=== PATIENT | female | born 1965 | race Caucasian/White ===

== ENCOUNTER → 2016-06-29 | Outpatient (CLI) | payer BC, OTHER ==
[~2016-06-29] MED LIST: ASPI81TA83; GLUC1000; HCTZ; LASI80TA; LISI20TA5; NORV5TAB; PRIN10TA; XANA0.25; ZOCO40TA
== END ==
LOC: M WUC 12:57
PROVIDERS: ATTEND Physician Assistant
DX: Z02.1 Encounter for pre-employment examination (principal)

== ENCOUNTER → 2017-05-28 | Outpatient (CLI) | payer BC, OTHER ==
[2017-05-28 12:44] LABS: BASO % 0.4 % (0.0-1.0); EOS % 0.8 % (0.0-3.0); HEMOGLOBIN 15.1 g/dl (12.0-16.0); IMMATURE GRANULOCYTE % 0.2 % (0-3.0); LYMPH # 1.4 10^3/uL (1.5-4.5); LYMPH % 26.8 % (24.0-44.0); MEAN CORPUSCULAR HEMOGLOBIN 32.4 pg (27.0-33.0); MEAN CORPUSCULAR HGB CONC 33.6 g/dl (32.0-36.5); MEAN CORPUSCULAR VOLUME 96.6 fl (80.0-96.0); MONO # 0.3 10^3/uL (0.0-0.8); NEUTROPHILS # 3.5 10^3/uL (1.8-7.7); NEUTROPHILS % 65.8 % (36.0-66.0); PLATELET COUNT, AUTOMATED 322 10^3/uL (150-450); RED BLOOD COUNT 4.66 10^6/uL (4.00-5.40); RED CELL DISTRIBUTION WIDTH 12.7 % (11.5-14.5); WHITE BLOOD COUNT 5.3 10^3/uL (4.0-10.0)
[2017-05-28 13:28] LABS: TOTAL 25(OH) VITAMIN D 18.3 NG/ML (30.0-100.0)
[2017-05-28 13:48] LABS: ALBUMIN 5.1 GM/DL (3.2-5.2); ALBUMIN/GLOBULIN RATIO 1.82 (1.00-1.93); ALKALINE PHOSPHATASE 50 U/L (45-117); ALT/SGPT 19 U/L (12-78); ANION GAP 9 MEQ/L (8-16); AST/SGOT 13 U/L (7-37); BILIRUBIN,TOTAL 0.4 MG/DL (0.2-1.0); BLOOD UREA NITROGEN 10 MG/DL (7-18); CALCIUM LEVEL 9.3 MG/DL (8.5-10.1); CARBON DIOXIDE LEVEL 26 MEQ/L (21-32); CHLORIDE LEVEL 105 MEQ/L (98-107); CHOLESTEROL LEVEL 254 MG/DL (<200); CHOLESTEROL RISK RATIO 4.792 (<5); CREATININE FOR GFR 0.72 MG/DL (0.55-1.30); FREE T4 1.09 NG/DL (0.76-1.46); GLOMERULAR FILTRATION RATE > 60.0 (>51); GLUCOSE, FASTING 87 MG/DL (70-100); HDL CHOLESTEROL 53 MG/DL (>40); LDL CHOLESTEROL 179.2 MG/DL (<100); NON-HDL-C 201 MG/DL; POTASSIUM SERUM 4.7 MEQ/L (3.5-5.1); SODIUM LEVEL 140 MEQ/L (136-145); TOTAL PROTEIN 7.9 GM/DL (6.4-8.2); TRIGLYCERIDES LEVEL 109 MG/DL (<150)
== END ==
LOC: M WUC 10:29
DX: Z13.220 Encounter for screening for lipoid disorders (principal); Z13.0 Encounter for screening for diseases of the blood and blood-forming organs and certain disorders involving the immune mechanism; Z13.29 Encounter for screening for other suspected endocrine disorder; E55.9 Vitamin D deficiency, unspecified
CPT/HCPCS: 84443

== ENCOUNTER → 2018-08-14 | Outpatient (CLI) | payer OTHER ==
[2018-08-14 13:05] LABS: BASO % 0.4 % (0.0-1.0); EOS # 0.1 10^3/uL (0.0-0.50); EOS % 2.1 % (0.0-3.0); HEMATOCRIT 44.9 % (36.0-47.0); HEMOGLOBIN 14.5 g/dl (12.0-15.5); LYMPH # 1.8 10^3/uL (1.5-4.5); LYMPH % 37.3 % (24.0-44.0); MEAN CORPUSCULAR HEMOGLOBIN 32.1 pg (27.0-33.0); MEAN CORPUSCULAR HGB CONC 32.3 g/dl (32.0-36.5); MEAN CORPUSCULAR VOLUME 99.3 fl (80.0-96.0); MONO # 0.3 10^3/uL (0.0-0.8); MONO % 6.8 % (0.0-5.0); NEUTROPHILS # 2.5 10^3/uL (1.8-7.7); NEUTROPHILS % 53.2 % (36.0-66.0); PLATELET COUNT, AUTOMATED 290 10^3/uL (150-450); RED BLOOD COUNT 4.52 10^6/uL (4.00-5.40); WHITE BLOOD COUNT 4.7 10^3/uL (4.0-10.0)
[2018-08-14 13:20] LABS: ALBUMIN 4.2 GM/DL (3.2-5.2); ALT/SGPT 15 U/L (12-78); BILIRUBIN,TOTAL 0.5 MG/DL (0.2-1.0); BLOOD UREA NITROGEN 10 MG/DL (7-18); CARBON DIOXIDE LEVEL 27 MEQ/L (21-32); CHLORIDE LEVEL 104 MEQ/L (98-107); CHOLESTEROL LEVEL 216 MG/DL (<200); CREATININE FOR GFR 0.64 MG/DL (0.55-1.30); FREE T4 1.01 NG/DL (0.76-1.46); GLOMERULAR FILTRATION RATE > 60.0 (>51); GLUCOSE, FASTING 82 MG/DL (70-100); HDL CHOLESTEROL 54 MG/DL (>40); LDL CHOLESTEROL 139 MG/DL (<100); NON-HDL-C 162 MG/DL; POTASSIUM SERUM 4.8 MEQ/L (3.5-5.1); SODIUM LEVEL 141 MEQ/L (136-145); TOTAL PROTEIN 7.5 GM/DL (6.4-8.2); TRIGLYCERIDES LEVEL 114 MG/DL (<150)
== END ==
LOC: M WUC 08:41
PROVIDERS: ATTEND Family Medicine
DX: E55.9 Vitamin D deficiency, unspecified (principal); E78.00 Pure hypercholesterolemia, unspecified

== ENCOUNTER → 2020-08-18 | Outpatient (CLI) | payer OTHER ==
[2020-08-18 11:09] LABS: BASO % 0.5 % (0.0-1.0); EOS % 0.9 % (0.0-3.0); HEMATOCRIT 46.3 % (36.0-47.0); HEMOGLOBIN 14.9 g/dl (12.0-15.5); LYMPH # 1.8 10^3/uL (1.5-5.0); LYMPH % 41.3 % (24.0-44.0); MEAN CORPUSCULAR HGB CONC 32.2 g/dl (32.0-36.5); MEAN CORPUSCULAR VOLUME 99.6 fl (80.0-96.0); MONO # 0.3 10^3/uL (0.0-0.8); NEUTROPHILS # 2.1 10^3/uL (1.5-8.5); NEUTROPHILS % 49.1 % (36.0-66.0); PLATELET COUNT, AUTOMATED 262 10^3/uL (150-450); RED BLOOD COUNT 4.65 10^6/uL (4.00-5.40); WHITE BLOOD COUNT 4.2 10^3/uL (4.0-10.0)
[2020-08-18 11:45] LABS: ALBUMIN 4.4 GM/DL (3.2-5.2); ALT/SGPT 14 U/L (12-78); BILIRUBIN,TOTAL 0.5 MG/DL (0.2-1.0); BLOOD UREA NITROGEN 9 MG/DL (7-18); CALCIUM LEVEL 9.6 MG/DL (8.5-10.1); CARBON DIOXIDE LEVEL 26 MEQ/L (21-32); CHLORIDE LEVEL 108 MEQ/L (98-107); CHOLESTEROL LEVEL 217 MG/DL (<200); CHOLESTEROL RISK RATIO 3.677 (<5); CREATININE FOR GFR 0.65 MG/DL (0.55-1.30); FREE T4 1.02 NG/DL (0.76-1.46); GLOMERULAR FILTRATION RATE > 60.0 (>51); GLUCOSE, FASTING 93 MG/DL (70-100); HDL CHOLESTEROL 59 MG/DL (>40); LDL CHOLESTEROL 137 MG/DL (<100); NON-HDL-C 158 MG/DL; POTASSIUM SERUM 4.5 MEQ/L (3.5-5.1); SODIUM LEVEL 141 MEQ/L (136-145); TOTAL PROTEIN 7.1 GM/DL (6.4-8.2); TRIGLYCERIDES LEVEL 104 MG/DL (<150)
[2020-08-18 13:11] LABS: TOTAL 25(OH) VITAMIN D 26.6 NG/ML (30.0-100.0)
== END ==
LOC: M WUC 08:10
PROVIDERS: ATTEND Family Medicine
DX: Z13.0 Encounter for screening for diseases of the blood and blood-forming organs and certain disorders involving the immune mechanism (principal); Z13.29 Encounter for screening for other suspected endocrine disorder; E78.00 Pure hypercholesterolemia, unspecified; E55.9 Vitamin D deficiency, unspecified

== ENCOUNTER → 2020-12-22 | Outpatient (CLI) | payer OTHER ==
[~2020-12-22] MED LIST changes: +D31000TA2 PO
== END ==
LOC: M LABSMTC 10:42
PROVIDERS: ATTEND Anesthesiology
DX: Z01.812 Encounter for preprocedural laboratory examination (principal); Z20.822 Contact with and (suspected) exposure to COVID-19

== ENCOUNTER → 2021-01-08 | Outpatient (CLI) | payer OTHER | LOC: M LABSMTC 09:29 | PROVIDERS: ATTEND Anesthesiology | DX: Z01.812 Encounter for preprocedural laboratory examination (principal); Z20.822 Contact with and (suspected) exposure to COVID-19 ==

== ENCOUNTER 2021-01-13 10:55 | Day surgery (SDC) | payer BC, OTHER ==
[~2021-01-13] VITALS: Ht 157.5 cm; Wt 44.5 kg
[~2021-01-13 10:55] MED LIST changes: +LIDOCAINE 2% 100MG/5ML SDV (FOR ANES.) As Ordered ONE; +NS 1,000 ML IV ONE; +propofoL 200 MG/20 ML VIAL As Ordered ONE
--- OUTSIDE RECORDS SUMMARY | 2021-01-13 11:00 | CCD | Continuity of Care Document ---
Author Author Gissell ROE M.D. Organization Unknown Address [address] [facility], [address] [place] [address] Phone [phone] Care Team Providers Care [employer] Name Role Phone Yelitza Kruse D.O.M Problems Description No Information Available Social History Type Date Description Comments Sex Unknown ETOH Use Denies alcohol use Tobacco Use Start: Unknown Patient is a current smoker, smo kes every day 1/2ppd Allergies, Adverse Reactions, Alerts Description No Known Drug Allergies Medications Active Medications SIG Qnty Indications Ordering Provide r Date Miralax 17GM/Scoop Powder 17 gram per dose, mixed with 8 oz water/fluid and to be taken 1 -2 times a day. ( hold or decrease dose if having diarrhea) 238gm K59.00 Chucky chand M.D. 11/11/2020 Vitamin D 1000Unit Tablets 1t ab qd Unknown Buspirone HCL 10mg Tablets 1t ab prn Unknown Immunizations Description No Information Available Vital Signs Date Vital Result Comment 11/11/2020 9:59am BP Systolic 118 mmHg BP Diastolic 62 mmHg Height 62 inches 5'2" Weight 100.00 lb BMI (Body Mass Index) 18.3 kg/m2 [place] Body Weight 110 lb Weight 45.360 kg BSA (Body Surface Area) 1.42 m2 Results Description No Information Available Procedures Description No Information Available Medical Devices Description No Information Available Encounters Description No Information Available Assessments Date Code Description Provider 11/11/2020 K59.00 Constipation, unspecified Keyonna Roe M.D. 11/11/2020 Z12.11 Encounter for screening for issac gnant neoplasm of colon Chucky Roe M.D. Plan of Treatment 11/11/2020 - Chucky Roe M.D.* K59.00 Constipation, unspecified * Z12.11 Encounter for screening for malignant neoplasm of colon* New Medication:* Miralax 17 GM/Scoop * * New Orders:* Colonoscopy, Ordered: 11/11/20 Functional Status Description No Information Available Mental Status Description No Information Available Referrals Refer to Dr Reason for Referral Status Appt Date Chucky Roe M.D. CHRONIC CONSTIPATION/COLO SCREEN Agapito eduled 11/11/2020 [facility] [address] [facility], [address] [place] [address] [phone]
--- OUTSIDE RECORDS SUMMARY | 2021-01-13 11:00 | CCD ---
Author Author [facility] Organization [facility] Address Unknown Phone Unavailable Care Team Providers Care Hot Stick Man Name Role Phone [facility]_806, NA Unavailable Unavailable JamesSofia bridges PA Unavailable Unavailable JamesSofia PA Unavailable Unavailable JamesSofia PA Unavailable Unavailable JamesSofia PA Unavailable Unavailable JamesSofia PA Unavailable Unavailable JamesSofia PA Unavailable Unavailable JamesSofia PA Unavailable Unavailable JamesSofia PA Unavailable Unavailable JamesSofia PA Unavailable Unavailable JamesSofia PA Unavailable Unavailable FORD-OSIRIS, CORAL DO Unavailable Unavailable FORD-OSIRIS, CORAL DO Unavailable Unavailable FORD-OSIRIS, CORAL DO Unavailable Unavailable FORD-OSIRIS, CORAL DO Unavailable Unavailable FORD-OSIRIS, CORAL DO Unavailable Unavailable FORD-OSIRIS, CORAL DO Unavailable Unavailable FORD-OSIRIS, CORAL DO Unavailable Unavailable FORD-OSIRIS, CORAL DO Unavailable Unavailable FORD-OSIRIS, CORAL DO Unavailable Unavailable FORD-OSIRIS, CORAL DO Unavailable Unavailable FORD-OSIRIS, CORAL DO Unavailable Unavailable FORD-OSIRIS, CORAL DO Unavailable Unavailable FORD-OSIRIS, CORAL DO Unavailable Unavailable FORD-OSIRIS, CORAL DO Unavailable Unavailable FORD-OSIRIS, CORAL DO Unavailable Unavailable FORD-OSIRIS, CORAL DO Unavailable Unavailable FORD-OSIRIS, CORAL DO Unavailable Unavailable FORD-OSIRIS, CORAL DO Unavailable Unavailable FORD-OSIRIS, CORAL DO Unavailable Unavailable FORD-OSIRIS, CORAL DO Unavailable Unavailable FORD-OSIRIS, CORAL DO Unavailable Unavailable FORD-OSIRIS, CORAL DO Unavailable Unavailable FORD-OSIRIS, CORAL DO Unavailable Unavailable FORD-OSIRIS, CORAL DO Unavailable Unavailable FORD-OSIRIS, CORAL DO Unavailable Unavailable FORD-OSIRIS, CORAL DO Unavailable Unavailable FORD-OSIRIS, CORAL DO Unavailable Unavailable FORD-OSIRIS, CORAL DO Unavailable Unavailable FORD-OSIRIS, CORAL DO Unavailable Unavailable FORD-OSIRIS, CORAL DO Unavailable Unavailable FORD-OSIRIS, CORAL DO Unavailable Unavailable FORD-OSIRIS, CORAL DO Unavailable Unavailable FORD-OSIRIS, CORAL DO Unavailable Unavailable FORD-OSIRIS, CORAL DO Unavailable Unavailable FORD-OSIRIS, CORAL DO Unavailable Unavailable FORD-OSIRIS, CORAL DO Unavailable Unavailable FORD-OSIRIS, CORAL DO Unavailable Unavailable FORD-OSIRIS, CORAL DO Unavailable Unavailable FORD-OSIRIS, CORAL DO Unavailable Unavailable FORD-OSIRIS, CORAL DO Unavailable Unavailable FORD-OSIRIS, CORAL DO Unavailable Unavailable FORD-OSIRIS, CORAL DO Unavailable Unavailable FORD-OSIRIS, CORAL DO Unavailable Unavailable FORD-OSIRIS, CORAL DO Unavailable Unavailable FORD-OSIRIS, CORAL DO Unavailable Unavailable FORD-OSIRIS, CORAL DO Unavailable Unavailable FORD-OSIRIS, CORAL DO Unavailable Unavailable FORD-OSIRIS, CORAL DO Unavailable Unavailable FORD-OSIRIS, CORAL DO Unavailable Unavailable FORD-OSIRIS, CORAL DO Unavailable Unavailable FORD-OSIRIS, CORAL DO Unavailable Unavailable FORD-OSIRIS, CORAL DO Unavailable Unavailable FORD-OSIRIS, CORAL DO Unavailable Unavailable FORD-OSIRIS, CORAL DO Unavailable Unavailable FORD-OSIRIS, CORAL DO Unavailable Unavailable FORD-OSIRIS, CORAL DO Unavailable Unavailable FORD-OSIRIS, CORAL DO Unavailable Unavailable FORD-OSIRIS, CORAL DO Unavailable Unavailable FORD-OSIRIS, CORAL DO Unavailable Unavailable FORD-OSIRIS, CORAL DO Unavailable Unavailable FORD-OSIRIS, CORAL DO Unavailable Unavailable FORD-OSIRIS, CORAL DO Unavailable Unavailable FORD-OSIRIS, CORAL DO Unavailable Unavailable FORD-OSIRIS, CORAL DO Unavailable Unavailable FORD-OSIRIS, CORAL DO Unavailable Unavailable FORD-OSIRIS, CORAL DO Unavailable Unavailable FORD-OSIRIS, CORAL DO Unavailable Unavailable FORD-OSIRIS, CORAL DO Unavailable Unavailable FORD-OSIRIS, CORAL DO Unavailable Unavailable FORD-OSIRIS, CORAL DO Unavailable Unavailable FORD-OSIRIS, CORAL DO Unavailable Unavailable FORD-OSIRIS, CORAL DO Unavailable Unavailable FORD-OSIRIS, CORAL DO Unavailable Unavailable FORD-OSIRIS, CORAL DO Unavailable Unavailable FORD-OSIRIS, CORAL DO Unavailable Unavailable FORD-OSIRIS, CORAL DO Unavailable Unavailable FORD-OSIRIS, CORAL DO Unavailable Unavailable FORD-OSIRIS, CORAL DO Unavailable Unavailable FORD-OSIRIS, CORAL DO Unavailable Unavailable FORD-OSIRIS, CORAL DO Unavailable Unavailable FORD-OSIRIS, CORAL DO Unavailable Unavailable FORD-OSIRIS, CORAL DO Unavailable Unavailable FORD-OSIRIS, CORAL DO Unavailable Unavailable FORD-OSIRIS, CORAL DO Unavailable Unavailable Hugo ROE MD Unavailable Unavailable Hugo ROE MD Unavailable Unavailable Hugo ROE MD Unavailable Unavailable Hugo ROE MD Unavailable Unavailable Hugo ROE MD Unavailable Unavailable Hugo ROE MD Unavailable Unavailable Hugo ROE MD Unavailable Unavailable Hugo ROE MD Unavailable Unavailable Hugo ROE MD Unavailable Unavailable Hugo ROE MD Unavailable Unavailable Hugo ROE MD Unavailable Unavailable Hugo ROE MD Unavailable Unavailable Hugo ROE MD Unavailable Unavailable Hugo ROE MD Unavailable Unavailable Hugo ROE MD Unavailable Unavailable CHANDRALA, K JAZMIN MD Unavailable Unavailable CHANDRALA, K JAZMIN MD Unavailable Unavailable CHANDRALA, K JAZMIN MD Unavailable Unavailable CHANDRALA, K JAZMIN MD Unavailable Unavailable CHANDRALA, K JAZMIN MD Unavailable Unavailable CHANDRALA, K JAZMIN MD Unavailable Unavailable CHANDRALA, K JAZMIN MD Unavailable Unavailable CHANDRALA, K JAZMIN MD Unavailable Unavailable CHANDRALA, K JAZMIN MD Unavailable Unavailable CHANDRALA, K JAZMIN MD Unavailable Unavailable CHANDRALA, K JAZMIN MD Unavailable Unavailable CHANDRALA, K JAZMIN MD Unavailable Unavailable CHANDRALA, K JAZMIN MD Unavailable Unavailable CHANDRALA, K JAZMIN MD Unavailable Unavailable CHANDRALA, K JAZMIN MD Unavailable Unavailable CHANDRALA, K JAZMIN MD Unavailable Unavailable CHANDRALA, K JAZMIN MD Unavailable Unavailable CHANDRALA, K JAZMIN MD Unavailable Unavailable Re-disclosure Warning The records that you are about to access may contain information from federally-assisted alcohol or drug abuse programs. If such information is present, then the following federally mandated warning applies: This information has been disclosed to you from records protected by federal confidentiality rules (42 CFR part 2). The federal rules prohibit you from making any further disclosure of this information unless further disclosure is expressly permitted by the written consent of the person to whom it pertains or as otherwise permitted by 42 CFR part 2. A general authorization for the release of medical or other information is NOT sufficient for this purpose. The Federal rules restrict any use of the information to criminally investigate or prosecute any alcohol or drug abuse patient.The records that you are about to access may contain highly sensitive health information, the redisclosure of which is protected by Article 27-F of the [facility] Public Health law. If you continue you may have access to information: Regarding HIV / AIDS; Provided by facilities licensed or operated by the [facility] Office of Mental Health; or Provided by the [facility] Office for People With Developmental Disabilities. If such information is present, then the following [facility] mandated warning applies: This information has been disclosed to you from confidential records which are protected by state law. State law prohibits you from making any further disclosure of this information without the specific written consent of the person to whom it pertains, or as otherwise permitted by law. Any unauthorized further disclosure in violation of state law may result in a fine or residential sentence or both. A general authorization for the release of medical or other information is NOT sufficient authorization for further disc losure. Family History Family Member Name Family Member Gender Family Member Status Date o f Status Description Data Source(s) Unknown Male Problem [facility] ([facility]) Unknown Male Problem [facility] ([facility]) Unknown Male Problem [facility] ([facility]) Encounters Encounter Providers Location Date Indications Data Source(s ) Outpatient Attender: JAZMIN Bush/Valente/Elmer garcia/Reindl 11/11/2020 09:20:00 AM EDT [facility] ([facility] Outpatient Attender: NA [facility]_806 [facility] 09/09/2020 10:00:00 AM EDT [facility] ([facility]) Outpatient Attender: CORAL GORDILLO DO [facility] 09/07/2020 09:00:00 AM EDT [facility] ([facility]) Outpatient Attender: Alana Wong zhou 02/15/2020 09:10:00 AM EST [facility] ([facility]) Immunizations Vaccine Date Status Description Data Source(s) TB Skin test is not vaccine. 09/07/2020 09:54:00 AM EDT completed [facility] ([facility]) COVID-19 VACCINE Moderna 06/17/2020 12:00:00 AM EDT completed [facility] Vaccine Series Complete: YESThis Data wa s Submitted to [facility]. COVID-19 VACCINE Moderna 05/20/2020 12:00:00 AM EST completed [facility] Vaccine Series Complete: NOThis Data was Submitted to [facility]. Medications Medication Brand Name Start Date Product Form Dose Route Admi nistrative Instructions Pharmacy Instructions Status Indications Reaction Description Data Source(s) 5 mg 12/30/2020 12:00:00 AM EDT tablet,delayed release (DR/EC) 4 4 BY MOUTH ONCE PER BOWEL PREP INSTRUCTIONS 4 BY MOUTH ONCE PER BOWEL PREP INSTRUCTIONS SOLD: 12/31/2020 [facility] SUPREP BOWEL PREP KIT 17.5-3.13-1.6 gram SODIUM, POTASSIUM,M AG SULFATES 12/30/2020 12:00:00 AM EDT recon soln 354 DIRECTED DIREC WALLACE SOLD: 12/31/2020 [facility] 5 mg 12/20/2020 12:00:00 AM EDT tablet,delayed release (DR/EC) 4 TAKE 4 TABLETS BY MOUTH TOGETHER PER BOWEL PREPARATION INSTRUCTIONS TAKE 4 TABLETS BY MOUTH TOGETHER PER BOWEL PREPARATION INSTRUCTIONS SOLD: 12/22/2020 [facility] Citric Acid 75 MG/ML / Magnesium Oxide 2 1.9 MG/ML / picosulfate sodium 0.0625 MG/ML Oral Solution [Clenpiq] 10 mg-3.5 gram -12 gram/160 mL SOD PICOSULF/MAG OX/CITRIC AC 12/20/2020 12:00:00 AM EDT solution 320 DIRECTE D DIRECTED SOLD: 12/22/2020 [facility] POLYETHYLENE GLYCOL 3350 142 MG/ML Oral Solution [Miralax] M iralax 11/11/2020 12:00:00 AM EDT active M EDENT ([facility] ) Cholecalciferol 2000 UNT Oral Capsule Vitamin D3 09/07/2020 12:00:00 AM EDT ORAL active MED[facility] ([facility]) 20-25 mg 02/15/2020 12:00:00 AM EST tablet 30 TAKE ONE TABLET BY MOUTH EVERY DAY TAKE ONE TABLET BY MOUTH EVERY DAY SOLD: 02/15/2020 [facility] Hydrochlorothiazide 25 MG / Lisinopril 20 MG Oral Tabl et Lisinopril-Hydrochlorothiazide 02/15/2020 12:00:00 AM EST ORAL active MED[facility] ([facility]) No Active Medications 02/15/2020 12:00:00 AM EST completed [facility] ([facility] Insurance Providers Payer name Policy type / Coverage type Policy ID Covered democrat ID Covered democrat's relationship to edward Policy Edward Plan Information [facility] [id number] [facility] [id number] BS [employer] DIV [id number] [facility] [id number] [place] Plan Commercial [id number] Family Dependent [id number] [facility] [place] Commercial [id number] Self [id number] [place]IRE ([facility]) O [id number] P [id number] [facility] [place] Commercial [id number] Self [id number] [place] Plan Commercial [id number] Family Dependent [id number] [facility] [place] Commercial [id number] Self [id number] [place] Plan Commercial [id number] Family Dependent [id number] [place] Plan [facility] [id number] Emigdio CHRISTIANSEN UNAVAILABLE UNAVAILABLE [facility] [id number] Problems, Conditions, and Diagnoses No Information Surgeries/Procedures Procedure Description Date Indications Data Source(s) OFFICE OUTPATIENT NEW 45 MINUTES 11/11/2020 12:00:00 A M EDT [facility] ([facility] ) OFFICE OUTPATIENT VISIT 5 MINUTES 09/09/2020 12:00:00 AM EDT [facility] ([facility]) PERIODIC PREVENTIVE MED EST PATIENT 40-64YRS 12:00:00 AM EDT [facility] ([facility]) Results ID Date Data Source [id number] 01/08/2021 09:30:00 AM EDT [facility] Name Value Range Interpretation Code Description Data Jessica rce(s) Supporting Document(s) SARS-CoV-2 (COVID-19) RNA [Presence] in Respiratory specimen by ODALYS with probe detection Not Detected [facility] This lab was ordered by [facility] and reported by [employer] ID Date Data Source [id number] 12/22/2020 10:50:00 AM EDT [facility] Name Value Range Interpretation Code Description Data Jessica rce(s) Supporting Document(s) SARS-CoV-2 (COVID-19) RNA [Presence] in Respiratory specimen by ODALYS with probe detection Not Detected [facility] This lab was ordered by [facility] and reported by [employer] ID Date Data Source [id number] 12/22/2020 10:50:00 AM EDT [facility] ([facility]) Name Value Range Interpretation Code Description Data Jessica rce(s) Supporting Document(s) Coronavirus 2019 Nasopharygeal Laboratory test result [facility] ([facility]) ASSAY INFORMATION: Real Time RT-PCR NOTE: The COVID-19 assay has been cleared by the U.S. Food and Drug Administration under the Emergency Use Authorization (EUA). [employer] [facility] [employer] are designated as high complexity laboratories by the Clinical Laboratory Improvement Amendments of 1988(CLIA) and are qualified to perform this test. Not Detected ID Date Data Source [id number] 08/18/2020 08:11:00 AM EDT [facility] ([facility]) Name Value Range Interpretation Code Description Data Jessica rce(s) Supporting Document(s) Calcidiol [Mass/volume] in Serum or Plasma 26.6 ng/mL 30.0- 100.0 Below low normal [facility] ([facility]) ID Date Data Source [id number] 08/18/2020 08:11:00 AM EDT [facility] ([facility]) Name Value Range Interpretation Code Description Data Jessica rce(s) Supporting Document(s) Cholesterol Level 217 mg/dL Above high normal [facility] ([facility]) Triglycerides Level 104 mg/dL Normal (applies to non-nume daren results) [facility] ([facility]) LDL Cholesterol 137 mg/dL Above high normal [facility] ([facility]) Non-HDL-C 158 mg/dL Normal (applies to non-numeric resul ts) [facility] ([facility]) HDL Cholesterol 59 mg/dL Normal (applies to non-numeric results) [facility] ([facility]) Cholesterol Risk Ratio 3.677 Normal (applies to non-n umeric results) [facility] ([facility]) ID Date Data Source [id number] 08/18/2020 08:11:00 AM EDT [facility]) Name Value Range Interpretation Code Description Data Jessica rce(s) Supporting Document(s) Free T4 1.02 ng/dL 0.76-1.46 Normal (applies to non-numeric resul ts) [facility] ([facility]) Thyroid Stimulating Hormone 1.360 uIU/ML 0.358-3.740 Norm al (applies to non- numeric results) [facility] ([facility]) ID Date Data Source [id number] 08/18/2020 08:11:00 AM EDT [facility]) Name Value Range Interpretation Code Description Data Jessica rce(s) Supporting Document(s) Blood Urea Nitrogen 9 mg/dL 7-18 Normal (applies to non-nume daren results) [facility] ([facility]) Glucose, Fasting 93 mg/dL 70-100 Normal (applies to non-numeric results) [facility] ([facility]) Creatinine For GFR 0.65 mg/dL 0.55-1.30 Normal (applies to non -numeric results) [facility] ([facility]) Glomerular Filtration Rate Laboratory test result Normal (applies to non- numeric results) [facility]) <content>Units are mL/min/1.73 m2</content>
<content></content>
<content>Chronic Kidney Disease Staging per NKF:</content>
<content></content>
<content>Stage I & II GFR >=60 Normal to Mildly Decreased</content>
<content>Stage III GFR 30- 59 Moderately Decreased</content>
<content>Stage IV GFR 15-29 Severely Decreased</content>
<content>Stage V GFR <15 Very Little GFR Left</content>
<content>ESRD GFR <15 on SIGNAL ENGINEER</content>
<content></content> Chloride Level 108 meq/L 98-107 Above high normal [facility] ([facility]) Potassium Serum 4.5 meq/L 3.5-5.1 Normal (applies to non-numeric results) [facility] ([facility]) Sodium Level 141 meq/L 136-145 Normal (applies to non-numeric res ults) [facility] ([facility]) Carbon Dioxide Level 26 meq/L 21-32 Normal (applies to non-num william results) [facility] ([facility]) Anion Gap 7 meq/L 8-16 Below low normal [facility]) Calcium Level 9.6 mg/dL 8.5-10.1 Normal (applies to non-numeric re sults) [facility] ([facility]) Alt/SGPT 14 U/L 12-78 Normal (applies to non-numeric resul ts) [facility] ([facility]) Ast/Sgot 13 U/L 7-37 Normal (applies to non-numeric resul ts) [facility] ([facility]) Alkaline Phosphatase 52 U/L 45-117 Normal (applies to non-num william results) [facility] ([facility]) Total Protein 7.1 GM/DL 6.4-8.2 Normal (applies to non-numeric re sults) [facility] ([facility]) Bilirubin,Total 0.5 mg/dL 0.2-1.0 Normal (applies to non-numeric results) [facility] ([facility]) Albumin/Globulin Ratio 1.6 1.2-2.2 Normal (applies to non-n umeric results) [facility] ([facility]) Albumin 4.4 GM/DL 3.2-5.2 Normal (applies to non-numeric resul ts) [facility] ([facility]) ID Date Data Source [id number] 08/18/2020 08:11:00 AM EDT [facility] ([facility]) Name Value Range Interpretation Code Description Data Jessica rce(s) Supporting Document(s) White Blood Count 4.2 10 4.0-10.0 Normal (applies to non-numeri c results) [facility] ([facility]) Red Blood Count 4.65 10 4.00-5.40 Normal (applies to non-numeric results) [facility] ([facility]) Hemoglobin 14.9 g/dL 12.0-15.5 Normal (applies to non-numeric resul ts) [facility] ([facility]) Mean Corpuscular Hemoglobin 32.0 pg 27.0-33.0 Norm al (applies to non-numeric results) [facility] ([facility]) Mean Corpuscular Volume 99.6 fl 80.0-96.0 Above high normal [facility] ([facility]) Hematocrit 46.3 % 36.0-47.0 Normal (applies to non-numeric resul ts) [facility] ([facility]) Red Cell Distribution Width 12.6 % 11.5-14.5 Norm al (applies to non-numeric results) [facility] ([facility]) Mean Corpuscular HGB Conc 32.2 g/dL 32.0-36.5 Normal (applies to non-numeric results) [facility] ([facility]) Lymph % 41.3 % 24.0-44.0 Normal (applies to non-numeric resul ts) [facility] ([facility]) Platelet Count, Automated 262 10 150-450 Normal (applies to non-numeric results) [facility] ([facility]) Neutrophils % 49.1 % 36.0-66.0 Normal (applies to non-numeric re sults) [facility] ([facility]) Baso % 0.5 % 0.0-1.0 Normal (applies to non-numeric resul ts) [facility] ([facility]) Eos % 0.9 % 0.0-3.0 Normal (applies to non-numeric resul ts) [facility] ([facility]) [place] % 8.0 % 2.0-8.0 Normal (applies to non-numeric resul ts) [facility] ([facility]) Immature Granulocyte % 0.2 % 0-3.0 Normal (applies to non-n umeric results) [facility] ([facility]) Nucleated Red Blood Cell % 0.0 % 0-0 Normal (applies to n on-numeric results) [facility] ([facility]) Neutrophils # 2.1 10 1.5-8.5 Normal (applies to non-numeric re sults) [facility] ([facility]) [place] # 0.3 10 0.0-0.8 Normal (applies to non-numeric resul ts) [facility] ([facility]) Eos # 0.0 10 0.0-0.5 Normal (applies to non-numeric resul ts) [facility] ([facility]) Lymph # 1.8 10 1.5-5.0 Normal (applies to non-numeric resul ts) [facility] ([facility]) Baso # 0.0 10 0.0-0.2 Normal (applies to non-numeric resul ts) [facility] ([facility]) ID Date Data Source [id number] 02/15/2020 12:00:00 AM EST [facility] Name Value Range Interpretation Code Description Data Jessica rce(s) Supporting Document(s) SARS coronavirus 2 Ag [facility] This lab was ordered by [facility] and reported by [facility]. Procedure Social History No Information Vital Signs ID Date Data Source UNK Name Value Range Interpretation Code Description Data Source(s) Systolic blood pressure 118 mm[Hg] 118 mm[Hg] [facility] Diastolic blood pressure 62 mm[Hg] 62 mm[Hg] [facility] ([facility]) Body height 62 [in_i] 62 [in_i] [facility] ([facility]) 5'2" Body weight 100.00 [lb_av] 100.00 [lb_av] [facility] ([facility]) Body mass index (BMI) [Ratio] 18.3 kg/m2 18.3 k g/m2 [facility] ([facility]) [place] body weight 110 [lb_av] 110 [lb_av] [facility] Body weight 45.360 kg 45.360 kg [facility] ([facility]) Body surface area Derived from formula 1.42 m2 1.42 m2 [facility] ([facility]) Body weight 101.38 [lb_av] 101.38 [lb_av] [facility] ([facility]) Systolic blood pressure 132 mm[Hg] 132 mm[Hg] [facility] Diastolic blood pressure 72 mm[Hg] 72 mm[Hg] [facility] ([facility]) Body height 62.7 [in_i] 62.7 [in_i] [facility] ([facility] 5'2.70" Body mass index (BMI) [Ratio] 18.1 kg/m2 18.1 k g/m2 [facility] ([facility]) Heart rate 90 /min 90 /min [facility] ([facility]) Respiratory rate 18 /min 18 /min MEDENT ( [facility]) Body temperature 99.2 [degF] 99.2 [degF] MEDENT ([facility]) Oxygen saturation in Arterial blood by Pulse oximetry 99 % 99 % MEDENT ([facility]) Conner body weight 110 [lb_av] 110 [lb_av] MEDEN T ([facility]) Systolic blood pressure 166 mm[Hg] 166 mm[Hg] M EDENT ([facility], [facility]) 176/112 manual Diastolic blood pressure 126 mm[Hg] 126 mm[Hg] MEDENT ([facility], [facility]) 176/112 manual Heart rate 108 /min 108 /min MEDENT ([facility], [facility]) Respiratory rate 16 /min 16 /min MEDENT ( [facility], [facility]) Oxygen saturation in Arterial blood by Pulse oximetry 98 % 98 % MEDENT ([facility], [facility]) Body temperature 98.5 [degF] 98.5 [degF] MEDENT ([facility], [facility]) Body weight 103.00 [lb_av] 103.00 [lb_av] MEDEN T ([facility], [facility])
--- OUTSIDE RECORDS SUMMARY | 2021-01-13 11:00 | CCD | Continuity of Care Document ---
Author Author Gissell MARVIN M.D. Organization Unknown Address [address], [address] [place] [address] Phone [phone] Care Team Providers Care Solution Strategist Name Role Phone Yelitza Kruse D.O.M [phone] Problems Description No Information Available Social History [...] lb BMI (Body Mass Index) 18.3 kg/m2 [place] Body Weight 110 lb Weight 45.360 kg BSA (Body Surface Area) 1.42 m2 Results Description No Information Available Procedures Date Code Description Status 11/11/2020 78737 Office/Outpatient New Moderate M DM 45-59 Minutes Completed Medical Devices Description No Information Available Encounters Type Date Location Provider Dx Diagnosis Office Visit 11/11/2020 9:20a [facility] K59.00 Constipation, unspecified Z12.11 Encounter for screening for malignant neoplasm of colon Assessments Date Code Description Provider 11/11/2020 K59.00 Constipation, unspecified Keyonna Marvin M.D. 11/11/2020 Z12.11 Encounter for screening for issac gnant neoplasm of colon Chucky Marvin M.D. Plan of Treatment Future Appointment(s):* 01/05/2021 1:30 pm - Chucky Marvin M.D. at [facility] * 12/27/2020 1:25 pm - Chucky Marvin M.D. at [facility] Functional Status Description No Information Available Mental Status Description No Information Available Referrals Refer to Dr Reason for Referral Status Appt Date Chucky Marvin M.D. CHRONIC CONSTIPATION/COLO SCREEN Agapito eduled 11/11/2020 [facility] [address], [address] [place] [address] [phone]
--- OUTSIDE RECORDS SUMMARY | 2021-01-13 11:00 | CCD | Continuity of Care Document ---
Author Author Gissell KRUSE D.O. Organization Unknown Address [address] [place] [address] Phone [phone] Care Team Providers Care Bottle Labeler Name Role Phone Yelitza Kruse D.O. AUTM [phone] Chucky Marvin MD AUTM [phone] Problems Active Problems Provider Date Chronic idiopathic constipation Yelitza Kruse D.O. O nset: 12/05/2016 Tobacco user Yelitza Kruse D.O. Onset: 2016 Social History Type Date Description Comments Sex Unknown ETOH Use Denies alcohol use ETOH Use Former problem with alcohol Recreational Drug Use Denies Drug Use Tobacco Use Start: Unknown Light tobacco smoker (10 or fewe r cigarettes/day) Smoking Status Reviewed: 09/07/20 Light tobacco smoker (10 or fewer cigarettes/day) Exercise Type/Frequency Walks daily Sun Exposure Uses sunscreen Seat Belt/Car Seat Always uses seat belt Allergies, Adverse Reactions, Alerts Description No Known Drug Allergies Medications Active Medications SIG Qnty Indications Ordering Provide r Date Vitamin D3 50mcg (1999 Ut) Capsule s 1 by mouth every day 90caps Yelitza Kruse D.O. 09/07 Buspirone HCL 10mg Tablets take 1 tablet by mouth 3 times a day as needed 90tabs F41.1 Yelitza dixon D.O. 08/25/2019 Vitamin D3 1000Unit Capsules 1 by mouth every day 90caps Yelitza Kruse D.O. 08/15 Medications Administered in Office Medication SIG Qnty Indications Ordering Provider Date Immunization Adminstration 2+ Single Or Combination Injection Yelitza Baker D.O. 08/25/2019 Immunization Administration Single Or Co mbination Injection Damion Vergara 08/25/2019 Immunizations CPT Code Status Date Vaccine Lot # [id number] Given 09/07/2020 TB Intradermal Test [id number] Given 09/09/2019 TB Intradermal Test 61311 Given 09/09/2019 TB Intradermal Test [id number] Given 08/25/2019 Tetanus, Diphthe shaq Toxoids/Acellular Pertussis Vaccine 7 Or > [id number] Given 10/07/2018 TB Intradermal Test Vital Signs Date Vital Result Comment 09/07/2020 9:09am BP Systolic 132 mmHg BP Diastolic 72 mmHg Height 62.7 inches 5'2.70" Weight 101.38 lb BMI (Body Mass Index) 18.1 kg/m2 Heart Rate 90 /min Respiratory Rate 18 /min Body Temperature 99.2 F O2 % BldC Oximetry 99 % [place] Body Weight 110 lb 08/25/2019 8:20am BP Systolic 122 mmHg BP Diastolic 76 mmHg Height 62.7 inches 5'2.70" Weight 106.19 lb BMI (Body Mass Index) 19.0 kg/m2 Heart Rate 87 /min Respiratory Rate 18 /min Body Temperature 984.0 F O2 % BldC Oximetry 98 % [place] Body Weight 110 lb Results Test Acquired Date Facility Test Result H/L Range Note Coronavirus 2019 Nasopharygeal 12/22/2020 [facility] Outpa tient Testing (Registration) [address] [place] [address] [id number] [phone] Coronavirus 2019 Nasopharygeal ASSAY INFORMATIO <SEE N OTE> 1 CBC With Differential 08/18/[address] [id number] [phone] White Blood Count 4.2 10 Normal 4.0-10.0 Red Blood Count 4.65 10 Normal 4.00-5.40 Hemoglobin 14.9 g/dL Normal 12.0-15.5 Hematocrit 46.3 % Normal 36.0-47.0 Mean Corpuscular Volume 99.6 fl High 80.0-96.0 Mean Corpuscular Hemoglobin 32.0 pg Normal 27.0-33.0 Mean Corpuscular HGB Conc 32.2 g/dL Normal 32.0-36.5 Red Cell Distribution Width 12.6 % Normal 11.5-14.5 Platelet Count, Automated 262 10 Normal 150-450 Neutrophils % 49.1 % Normal 36.0-66.0 Lymph % 41.3 % Normal 24.0-44.0 [place] % 8.0 % Normal 2.0-8.0 Eos % 0.9 % Normal 0.0-3.0 Baso % 0.5 % Normal 0.0-1.0 Immature Granulocyte % 0.2 % Normal 0-3.0 Nucleated Red Blood Cell % 0.0 % Normal 0-0 Neutrophils # 2.1 10 Normal 1.5-8.5 Lymph # 1.8 10 Normal 1.5-5.0 [place] # 0.3 10 Normal 0.0-0.8 Eos # 0.0 10 Normal 0.0-0.5 Baso # 0.0 10 Normal 0.0-0.2 Comprehensive Metabolic Profil 08/18/2020 [place] [id number] [phone] Glucose, Fasting 93 mg/dL Normal 70-100 Blood Urea Nitrogen 9 mg/dL Normal 7-18 Creatinine For GFR 0.65 mg/dL Normal 0.55-1.30 Glomerular Filtration Rate > 60.0 Normal >51 2 Sodium Level 141 mEq/L Normal 136-145 Potassium Serum 4.5 mEq/L Normal 3.5-5.1 Chloride Level 108 mEq/L High 98-107 Carbon Dioxide Level 26 mEq/L Normal 21-32 Anion Gap 7 mEq/L Low 8-16 Calcium Level 9.6 mg/dL Normal 8.5-10.1 Ast/Sgot 13 U/L Normal 7-37 Alt/SGPT 14 U/L Normal 12-78 Alkaline Phosphatase 52 U/L Normal 45-117 Bilirubin,Total 0.5 mg/dL Normal 0.2-1.0 Total Protein 7.1 GM/DL Normal 6.4-8.2 Albumin 4.4 GM/DL Normal 3.2-5.2 Albumin/Globulin Ratio 1.6 Normal 1.2-2.2 FT4&TSH Panel 08/18/2020 [facility] [address] [place] [address] [phone] Thyroid Stimulating Hormone 1.360 uIU/ML Normal 0. 358-3.740 Free T4 1.02 ng/dL Normal 0.76-1.46 Lipid Panel 08/18/2020 [facility] [address] [place] [address] [phone] Triglycerides Level 104 mg/dL Normal <150 Cholesterol Level 217 mg/dL High <200 HDL Cholesterol 59 mg/dL Normal >40 LDL Cholesterol 137 mg/dL High <100 Non-HDL-C 158 mg/dL Normal Cholesterol Risk Ratio 3.677 Normal <5 Laboratory test finding 08/18/2020 [facility] [address] [place] [address] [phone] Total 25(Oh) Vitamin D 26.6 NG/ML Low 30.0-100. 0 1 ASSAY INFORMATION: Real Time RT-PCR NOTE: The COVID-19 assay has been cleared by the U.S. Food and Drug Administration under the Emergency Use Authorization (EUA). [facility] are designated as high complexity laboratories by the Clinical Laboratory Improvement Amendments of 1988(CLIA) and are qualified to perform this test. Not Detected 2 Units are mL/min/1.73 m2 Chronic Kidney Disease Staging per NKF: Stage I & II GFR >=60 Normal to Mildly Decreased Stage III GFR 30-59 Moderately Decreased Stage IV GFR 15-29 Severely Decreased Stage V GFR <15 Very Little GFR Left ESRD GFR <15 on [employer] Procedures Date Code Description Status 09/09/2020 35268 Office/Outpatient Established Mi nimal Problem(S) Completed 09/07/2020 37326 Preventive Visit Est 40-64 Yrs C ompleted Medical Devices Description No Information Available Encounters Type Date Location Provider Dx Diagnosis Office Visit 09/09/2020 10:00a Family [facility] Gissell boyd Z11.1 Encounter for screening for respiratory tuberculosis Office Visit 09/07/2020 9:00a Family [facility] Yelitza Kruse D.O. Z00.00 Encntr for general adult med ical exam w/o abnormal findings Z11.1 Encounter for screening for respiratory tuberculosis Z13.29 Encounter for screening for oth suspected endocrine disorder Z13.0 Encntr screen for dis of the bld/bld-form org/immun mechnsm Z13.220 Encounter for screening for lipoid disorders E55.9 Vitamin D deficiency, unspec ified F17.210 Nicotine dependence, cigaret arlette, uncomplicated F41.1 Generalized anxiety disorder Z12.31 Encntr screen mammogram for malignant neoplasm of breast Z12.11 Encounter for screening for malignant neoplasm of colon Assessments Date Code Description Provider 09/09/2020 Z11.1 Encounter for screening for resp iratory tuberculosis Nurse 09/07/2020 Z00.00 Encounter for genera l adult medical examination without abnormal findings Amrik VergaraOSophie 09/07/2020 Z11.1 Encounter for screening for resp iratory tuberculosis Damion Vergara.OSophie 09/07/2020 Z13.29 Encounter for screen ing for other suspected endocrine disorder Yelitza Kruse D.O. 09/07/2020 Z13.0 Encounter for screen ing for diseases of the blood and blood- forming organs and certain disorders involving the immune mechanism Damion Vergara.OSophie 09/07/2020 Z13.220 Encounter for screening for lipo id disorders Damion Aponte.OSophie 09/07/2020 E55.9 Vitamin D deficiency, unspecifie d Yelitza Kruse D.OSophie 09/07/2020 F17.210 Nicotine dependence, cigarettes, uncomplicated Yelitza Andujar D.OSophie 09/07/2020 F41.1 Generalized anxiety disorder Shu priya Kruse D.OSophie 09/07/2020 Z12.31 Encounter for screen ing mammogram for malignant neoplasm of breast Yelitza Kruse D.O. 09/07/2020 Z12.11 Encounter for screening for issac gnant neoplasm of colon Yelitza Kruse D.O. Plan of Treatment Future Appointment(s):* 09/12/2021 8:00 am - Yelitza Kruse D.O. at [facility] Functional Status Description No Information Available Mental Status Description No Information Available Referrals Refer to Reason for Referral Status Appt Date Chucky Marvin MD This is a 55 year old female with chronic constipation that is worsening and she has never had a colonoscopy and is willing to do that now as well. Please evaluate and treat. Sent 11/11/[address] [id number] [phone]
[2021-01-13] MEDS ORDERED: propofoL 200 MG/20 ML VIAL As Ordered ONE (12:16)
--- NOTE | 2021-01-13 12:54 | ROOR ---
Patient Name: Gissell Arcos Procedure Date: 01/13/2021 11:59 AM Date of : 1965 Age: 55 Room: [facility] Gender: Female Note Status: Finalized Procedure: Colonoscopy Indications: Screening for colorectal malignant neoplasm Providers: Chucky Marvin MD Referring MD: Yelitza GORDILLO DO Requesting Provider: Medicines: Monitored Anesthesia Care Complications: No immediate complications. Procedure: Pre-Anesthesia Assessment: - Prior to the procedure, a History and Physical was performed, and patient medications and allergies were reviewed. The patient is competent. The risks and benefits of the procedure and the sedation options and risks were discussed with the patient. All questions were answered and informed consent was obtained. Patient identification and proposed procedure were verified by the physician, the nurse and the anesthesiologist in the procedure room. Mental Status Examination: alert and oriented. Airway Examination: normal oropharyngeal airway and neck mobility. Respiratory Examination: clear to auscultation. CV Examination: normal. Prophylactic Antibiotics: The patient does not require prophylactic antibiotics. Prior Anticoagulants: The patient has taken no previous anticoagulant or antiplatelet agents. ASA Grade Assessment: II - A patient with mild systemic disease. After reviewing the risks and benefits, the patient was deemed in satisfactory condition to undergo the procedure. The anesthesia plan was to use monitored anesthesia care (MAC). Immediately prior to administration of medications, the patient was re-assessed for adequacy to receive sedatives. The heart rate, respiratory rate, oxygen saturations, blood pressure, adequacy of pulmonary ventilation, and response to care were monitored throughout the procedure. The physical status of the patient was re-assessed after the procedure. The Colonoscope was introduced through the anus and advanced to the cecum, identified by appendiceal orifice and ileocecal valve. The colonoscopy was performed without difficulty. The patient tolerated the procedure well. The quality of the bowel preparation was good. The terminal ileum, ileocecal valve, appendiceal orifice, and rectum were photographed. Scope insertion time was 2 minutes. Scope withdrawal time was 15 minutes. The total duration of the procedure was 20 minutes. Findings: The perianal and digital rectal examinations were normal. Three sessile polyps were found in the transverse colon. The polyps were 5 to 10 mm in size. These polyps were removed with a hot snare. Resection and retrieval were complete. Verification of patient identification for the specimen was done by the physician and nurse using the patient's name, date and medical record number. Estimated blood loss was minimal. To close a defect after polypectomy, one hemostatic clip was successfully placed. There was no bleeding at the end of the procedure. A 15 mm polyp was found in the ascending colon. The polyp was multi-lobulated and sessile. The polyp was removed with a hot snare. Resection and retrieval were complete. Verification of patient identification for the specimen was done by the physician and nurse using the patient's name, date and medical record number. Estimated blood loss was minimal. A 20 mm polyp was found in the sigmoid colon. The polyp was sessile. The polyp was removed with a hot snare. Resection and retrieval were complete. To close a defect after polypectomy, one hemostatic clip was successfully placed. There was no bleeding at the end of the procedure. Multiple small and large-mouthed diverticula were found in the sigmoid colon. There was evidence of diverticular spasm. There was no evidence of diverticular bleeding. Non-bleeding external and internal hemorrhoids were found during retroflexion. The hemorrhoids were medium-sized. A moderate amount of semi-liquid semi-solid stool was found in the sigmoid colon and in the ascending colon, interfering with visualization. Lavage of the area was performed using a large amount of sterile water, resulting in clearance with good visualization. Impression: - Three 5 to 10 mm polyps in the transverse colon, removed with a hot snare. Resected and retrieved. Clip was placed. - One 15 mm polyp in the ascending colon, removed with a hot snare. Resected and retrieved. - One 20 mm polyp in the sigmoid colon, removed with a hot snare. Resected and retrieved. Clip was placed. - Severe diverticulosis in the sigmoid colon. There was evidence of diverticular spasm. There was no evidence of diverticular bleeding. - Non-bleeding external and internal hemorrhoids. - Stool in the sigmoid colon and in the ascending colon. Recommendation: - Patient has a contact number available for emergencies. The signs and symptoms of potential delayed complications were discussed with the patient. Return to normal activities tomorrow. Written discharge instructions were provided to the patient. - High fiber diet. - Continue present medications. - Miralax 1 capful (17 grams) in 8 ounces of water PO daily for atleast 7 days and then adjust dose to have one to two soft bowel movements daily. - Await pathology results. - Repeat colonoscopy in 3 years for surveillance based on pathology results. - Telephone GI clinic for pathology results in 2 weeks. - Return to primary care physician. Procedure Code(s): --- Professional --- 64409, Colonoscopy, flexible; with removal of tumor(s), polyp(s), or other lesion(s) by snare technique Diagnosis Code(s): --- Professional --- K63.5, Polyp of colon Z12.11, Encounter for screening for malignant neoplasm of colon K64.8, Other hemorrhoids K57.30, Diverticulosis of large intestine without perforation or abscess without bleeding CPT copyright 2019 [employer]. All rights reserved. The codes documented in this report are preliminary and upon workflow developer review may be revised to meet current compliance requirements. Chucky Marvin MD Chucky Marvin MD 01/13/2021 12:53:46 PM Electronically signed by Chucky Marvin MD Number of Addenda: 0 Note Initiated On: 01/13/2021 11:59 AM Estimated Blood Loss: Estimated blood loss was minimal.
[2021-01-13 13:27] VITALS: BP 146/84
== END 2021-01-13 13:29 | disposition home or self-care (01) ==
LOC: M OPP 10:55
PROVIDERS: ATTEND Internal Medicine Gastroenterology
DX: Z12.11 Encounter for screening for malignant neoplasm of colon (principal); K63.5 Polyp of colon; K57.30 Diverticulosis of large intestine without perforation or abscess without bleeding; K64.8 Other hemorrhoids; F17.210 Nicotine dependence, cigarettes, uncomplicated

== ENCOUNTER → 2021-05-25 | Outpatient (CLI) | payer BC, OTHER ==
[~2021-05-25] MED LIST changes: -D31000TA2 PO; -LIDOCAINE 2% 100MG/5ML SDV (FOR ANES.) As Ordered ONE; -NS 1,000 ML IV ONE; +VITA100093 PO; -propofoL 200 MG/20 ML VIAL As Ordered ONE
== END ==
LOC: M WHC 12:53
PROVIDERS: ATTEND Family Medicine
DX: R92.2 Inconclusive mammogram (principal); N63.11 Unspecified lump in the right breast, upper outer quadrant
CPT/HCPCS: 76642; 77065; G0279

== ENCOUNTER → 2021-09-01 | Outpatient (CLI) | payer BC, OTHER ==
[2021-09-01 10:28] LABS: BASO % 0.3 % (0.0-1.0); EOS # 0.1 10^3/uL (0.0-0.5); HEMATOCRIT 42.9 % (36.0-47.0); HEMOGLOBIN 13.9 g/dl (12.0-15.5); LYMPH # 1.5 10^3/uL (1.5-5.0); LYMPH % 25.9 % (24.0-44.0); MEAN CORPUSCULAR HEMOGLOBIN 32.7 pg (27.0-33.0); MEAN CORPUSCULAR HGB CONC 32.4 g/dl (32.0-36.5); MEAN CORPUSCULAR VOLUME 100.9 fl (80.0-96.0); MONO # 0.4 10^3/uL (0.0-0.8); MONO % 6.6 % (2.0-8.0); NEUTROPHILS # 3.9 10^3/uL (1.5-8.5); NEUTROPHILS % 65.9 % (36.0-66.0); PLATELET COUNT, AUTOMATED 264 10^3/uL (150-450); RED BLOOD COUNT 4.25 10^6/uL (4.00-5.40); WHITE BLOOD COUNT 5.9 10^3/uL (4.0-10.0)
[2021-09-01 11:07] LABS: ALBUMIN 4.7 GM/DL (3.2-5.2); ALT/SGPT 14 U/L (12-78); BILIRUBIN,TOTAL 0.5 MG/DL (0.2-1.0); BLOOD UREA NITROGEN 9 MG/DL (7-18); CALCIUM LEVEL 9.9 MG/DL (8.5-10.1); CARBON DIOXIDE LEVEL 28 MEQ/L (21-32); CHLORIDE LEVEL 107 MEQ/L (98-107); CHOLESTEROL LEVEL 210 MG/DL (<200); CREATININE FOR GFR 0.68 MG/DL (0.55-1.30); FREE T4 1.08 NG/DL (0.76-1.46); GLOMERULAR FILTRATION RATE > 60.0 (>51); GLUCOSE, FASTING 78 MG/DL (70-100); HDL CHOLESTEROL 58 MG/DL (>40); LDL CHOLESTEROL 141 MG/DL (<100); NON-HDL-C 152 MG/DL; POTASSIUM SERUM 4.1 MEQ/L (3.5-5.1); SODIUM LEVEL 141 MEQ/L (136-145); TOTAL PROTEIN 7.2 GM/DL (6.4-8.2); TRIGLYCERIDES LEVEL 56 MG/DL (<150)
[2021-09-01 11:09] LABS: TOTAL 25(OH) VITAMIN D 34.9 NG/ML (30.0-100.0)
== END ==
LOC: M WUC 08:35
PROVIDERS: ATTEND Family Medicine
DX: Z13.29 Encounter for screening for other suspected endocrine disorder (principal); Z13.0 Encounter for screening for diseases of the blood and blood-forming organs and certain disorders involving the immune mechanism; Z13.220 Encounter for screening for lipoid disorders; E55.9 Vitamin D deficiency, unspecified

== ENCOUNTER → 2022-05-26 | Outpatient (CLI) | payer BC, OTHER | LOC: M WHC 08:20 | PROVIDERS: ATTEND Family Medicine | DX: Z12.31 Encounter for screening mammogram for malignant neoplasm of breast (principal) ==

== ENCOUNTER → 2022-09-06 | Outpatient (CLI) | payer BC, OTHER ==
[2022-09-06 13:31] LABS: BASO % 0.5 % (0.0-1.0); EOS # 0.1 10^3/uL (0.0-0.5); EOS % 0.8 % (0.0-3.0); HEMATOCRIT 47.9 % (36.0-47.0); HEMOGLOBIN 15.3 g/dl (12.0-15.5); LYMPH # 1.3 10^3/uL (1.5-5.0); LYMPH % 19.8 % (24.0-44.0); MEAN CORPUSCULAR HEMOGLOBIN 32.6 pg (27.0-33.0); MEAN CORPUSCULAR HGB CONC 31.9 g/dl (32.0-36.5); MEAN CORPUSCULAR VOLUME 101.9 fl (80.0-96.0); MONO # 0.3 10^3/uL (0.0-0.8); MONO % 4.8 % (2.0-8.0); NEUTROPHILS # 4.9 10^3/uL (1.5-8.5); NEUTROPHILS % 73.8 % (36.0-66.0); PLATELET COUNT, AUTOMATED 283 10^3/uL (150-450); WHITE BLOOD COUNT 6.7 10^3/uL (4.0-10.0)
[2022-09-06 13:51] LABS: ALBUMIN 4.7 G/DL (3.2-5.2); ALKALINE PHOSPHATASE 51 U/L (46-116); ALT/SGPT 9 U/L (7.0-40); AST/SGOT 9 U/L (<34); BILIRUBIN,TOTAL 0.5 MG/DL (0.3-1.2); BLOOD UREA NITROGEN 12 MG/DL (9-23); CALCIUM LEVEL 8.9 MG/DL (8.5-10.1); CARBON DIOXIDE LEVEL 27 MMOL/L (20-31); CHLORIDE LEVEL 106 MMOL/L (98-107); CHOLESTEROL LEVEL 197 MG/DL (<200); CHOLESTEROL RISK RATIO 3.46 (<5); GLOMERULAR FILTRATION RATE > 60.0 (>51); GLUCOSE, FASTING 89 MG/DL (60-100); HDL CHOLESTEROL 56.9 MG/DL (>40); LDL CHOLESTEROL 113.5 MG/DL (<100); NON-HDL-C 140.1 MG/DL; SODIUM LEVEL 142 MMOL/L (136-145); TOTAL PROTEIN 6.9 G/DL (5.7-8.2); TRIGLYCERIDES LEVEL 133 MG/DL (<150)
[2022-09-06 13:54] LABS: FREE T4 1.28 NG/DL (0.89-1.76)
[2022-09-06 13:55] LABS: THYROID STIMULATING HORMONE 1.078 uIU/ML (0.55-4.78); TOTAL 25(OH) VITAMIN D 46.9 NG/ML (20.0-100.0)
== END ==
LOC: M WUC 09:19
PROVIDERS: ATTEND Family Medicine
DX: E78.00 Pure hypercholesterolemia, unspecified (principal); E55.9 Vitamin D deficiency, unspecified; Z13.29 Encounter for screening for other suspected endocrine disorder; Z13.0 Encounter for screening for diseases of the blood and blood-forming organs and certain disorders involving the immune mechanism

== ENCOUNTER → 2022-09-15 | Outpatient (CLI) | payer BC, OTHER | LOC: M PLAIMG 09:25 | PROVIDERS: ATTEND Family Medicine | DX: M54.16 Radiculopathy, lumbar region (principal) ==

== ENCOUNTER 2023-05-05 13:30 | Emergency (ER) | payer BC, OTHER ==
[~2023-05-05] VITALS: Ht 160 cm; Wt 100.0 kg
[2023-05-05] MEDS: MAALOX 30 ML SUSP *UDC PO ONE (14:43)
[2023-05-05] MEDS: PANTOPRAZOLE 40MG VIAL IV ONE (14:43)
[2023-05-05] MEDS ORDERED: BUSP10TA (14:54)
[2023-05-05] MEDS ORDERED: TRAV2.5D (14:54)
[2023-05-05] MEDS ORDERED: LINZ72CA (14:54)
[2023-05-05 15:05] LABS: BASO % 0.3 % (0.0-1.0); EOS % 0.2 % (0.0-3.0); HEMATOCRIT 41.7 % (36.0-47.0); HEMOGLOBIN 13.7 g/dl (12.0-15.5); LYMPH % 8.3 % (24.0-44.0); MEAN CORPUSCULAR HEMOGLOBIN 31.9 pg (27.0-33.0); MEAN CORPUSCULAR HGB CONC 32.9 g/dl (32.0-36.5); MEAN CORPUSCULAR VOLUME 97.2 fl (80.0-96.0); MONO # 0.5 10^3/uL (0.0-0.8); MONO % 3.7 % (2.0-8.0); NEUTROPHILS # 10.9 10^3/uL (1.5-8.5); NEUTROPHILS % 87.2 % (36.0-66.0); PLATELET COUNT, AUTOMATED 424 10^3/uL (150-450); RED BLOOD COUNT 4.29 10^6/uL (4.00-5.40); WHITE BLOOD COUNT 12.5 10^3/uL (4.0-10.0)
[2023-05-05 15:29] LABS: CPK CREATINE PHOSPHOKINASE 74 U/L (34-145)
[2023-05-05 15:30] LABS: ALKALINE PHOSPHATASE 78 U/L (46-116); ALT/SGPT < 9 U/L (7.0-40); AST/SGOT < 8 U/L (<34); BILIRUBIN,DIRECT < 0.1 MG/DL (<0.4); BILIRUBIN,TOTAL 0.2 MG/DL (0.3-1.2); BLOOD UREA NITROGEN 10 MG/DL (9-23); CALCIUM LEVEL 9.3 MG/DL (8.5-10.1); CARBON DIOXIDE LEVEL 26 MMOL/L (20-31); CHLORIDE LEVEL 106 MMOL/L (98-107); CK-MB VALUE MASS < 1.0 NG/ML (<3.6); CREATININE FOR GFR 0.64 MG/DL (0.55-1.30); GLOMERULAR FILTRATION RATE > 60.0 (>51); GLUCOSE, FASTING 117 MG/DL (60-100); MB/CK RELATIVE INDEX 1.35 (< OR =4); POTASSIUM SERUM 4.1 MMOL/L (3.5-5.1); SODIUM LEVEL 139 MMOL/L (136-145); TOTAL PROTEIN 6.9 G/DL (5.7-8.2)
[2023-05-05 16:07] LABS: PROCALCITONIN 0.04 ng/ml
[2023-05-05 16:32] LABS: CK-MB VALUE MASS < 1.0 NG/ML (<3.6); CPK CREATINE PHOSPHOKINASE 56 U/L (34-145); MB/CK RELATIVE INDEX 1.78 (< OR =4)
[2023-05-05 16:38] LABS: INR 1.02; PROTHROMBIN TIME 13.1 SECONDS (12.5-14.5)
[2023-05-05 16:39] LABS: PARTIAL THROMBOPLASTIN TIME 34.4 SECONDS (24.8-34.2)
[2023-05-05 16:41] LABS: D-DIMER QUANT 0.33 ug/mL (<0.5)
[2023-05-05] MEDS ORDERED: HYDR-3363 PO (17:21)
[2023-05-05 18:30] VITALS: BP 152/97; TEMP 98.3; O2SAT 97
== END 2023-05-05 18:47 | disposition home or self-care (01) ==
LOC: M ED 13:30
DX: F41.9 Anxiety disorder, unspecified (principal); R00.0 Tachycardia, unspecified; I45.81 Long QT syndrome; K59.00 Constipation, unspecified; Z79.899 Other long term (current) drug therapy; Z79.83 Long term (current) use of bisphosphonates
CPT/HCPCS: 36415; 71045; 80048; 80076; 82550; 82553; 83880; 84145; 84484; 85025; 85379; 85610; 85730; 86140; 87486; 87581; 87633; 87798; 93005; 93041; 94760; 99285; C9113

== ENCOUNTER → 2023-10-03 | Outpatient (CLI) | payer BC ==
[~2023-10-03] MED LIST changes: +BUSP10TA; +HYDR-3363 PO; +LINZ72CA; +TRAV2.5D
== END ==
LOC: M PLAIMG 06:57
PROVIDERS: ATTEND Family Medicine
DX: M54.16 Radiculopathy, lumbar region (principal)

== ENCOUNTER → 2023-10-03 | Outpatient (CLI) | payer BC | LOC: M WHC 06:55 | PROVIDERS: ATTEND Family Medicine | DX: Z12.31 Encounter for screening mammogram for malignant neoplasm of breast (principal) ==

== ENCOUNTER → 2023-12-19 | Outpatient (REF) | payer BC, OTHER | LOC: M LAB REF 10:24 | PROVIDERS: ATTEND Physician Assistant | DX: N30.00 Acute cystitis without hematuria (principal) ==

== ENCOUNTER → 2024-04-25 | Outpatient (CLI) | payer BC, OTHER | LOC: M PLALAB 13:21 → M PLAIMG 13:21 | PROVIDERS: ATTEND Family Medicine | DX: M54.50 Low back pain, unspecified (principal); M25.552 Pain in left hip; M79.671 Pain in right foot; M25.551 Pain in right hip; M47.816 Spondylosis without myelopathy or radiculopathy, lumbar region; M47.817 Spondylosis without myelopathy or radiculopathy, lumbosacral region ==